=== PATIENT | male | born 1960 | race Caucasian/White ===

== ENCOUNTER 2017-01-26 20:52 | Emergency (ER) | payer OTHER ==
[~2017-01-26] VITALS: Ht 162.6 cm; Wt 65.8 kg
[2017-01-26] MEDS ORDERED: LISINOPRIL 10MG10 MG PO (21:08)
[2017-01-26] MEDS ORDERED: OMEPRAZOLE20 MG PO (21:09)
[2017-01-26] MEDS ORDERED: ASPIRIN 81MG TA81 MG PO (21:09)
--- NOTE | 2017-01-26 21:14 | Emergency Room Report ---
History of Present Illness Time Seen by [id number] Presenting Problem in Triage Pt arrived:Walked Presenting Problem:C/O ABDOMINAL PAIN WITH ABD SWELLING AND NAUSEA. ALSO C/O ABDOMINAL HERNIA. 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 N Clinical Suspician of Infection? N Mental Status: 1 - Regular (Normal Baseline) Sepsis Risk:Low Sepsis Risk Have you (or family members/close friends) recently traveled outside the [place]? N If Yes, where/when: Have you had exposure to infectious disease within the past month? N TB? Other? Specify: Source patient, RN notes reviewed, family, old records Exam Limitations no limitations Comment acute abd pain with swelling tender rt groin which started tonight Cardiac Chest Pain Chest pain indicative of cardiac No Timing/Duration this evening Severity moderate ALLERGIES Coded Allergies: No Known Allergies (01/26/17) Home Medications Reported Medications LISINOPRIL (Lisinopril) 10 MG PO DAILY Omeprazole (Omeprazole 20MG) 20 MG PO DAILY ASPIRIN (Aspirin) 81 MG PO DAILY History Medical History General CAD? Yes Angina: No [place]: No Hypertension? Yes Hyperlipidemia? Yes CHF? No DVT? No PE? No COPD? No Asthma? No Anemia? Yes GERD? Yes Gastric ulcers? No GI Bleed? No Hernia? Yes Thyroid Problems? No Hypothyroidism? No CVA? No Seizures? No Diabetes? No Renal Insuffiency? No End Stage Renal Disease? No UTI? No Stones? Yes BPH? No GB Disease: No Nephritic Syndrome? No Asplenia? No Hepatitis? No Sickle Cell Disease? No Arthritis? No Migraines? No Cataracts? No Glaucoma? No MRSA? No HIV? No TB? No Anxiety? No Depression? No Cancer? No More? Yes Additional hx: PANCREATITIS Immunization Hx DT/Tetanus Unknown Surgical Hx Previous Surgery?Y ANKLE RIGHT Social History Smoking Hx Smoker: Current Every Day Smoker Tobacco: Yes Type Cigarettes Packs/day < 1 Pack Are you/the child exposed to second-hand smoke: No Alcohol Alcohol: Yes Drugs none Review of Systems All Other Systems Reviewed and Negative Constitutional denies fever Eyes denies drainage ENT denies: ear discharge, epistaxis, throat pain. Respiratory denies cough, denies shortness of breath, denies wheezing Cardiovascular denies chest pain, denies palpitations, denies syncope Gastrointestinal see HPI, abdominal pain, denies diarrhea, nausea, denies vomiting Genitourinary see HPI, scrotal/testicular pain. denies: dysuria, frequency, hesitancy, hematuria. Musculoskeletal denies back pain, denies joint pain, denies joint swelling Skin denies rash Psychiatric/Neurological denies headache, denies seizure Physical Exam Vital Signs Vital Signs Date Time Temp Pulse Resp B/P Pulse O2 O2 Flow FiO2 Ox Delivery Rate 01/26 2329 97.8 58 20 177/90 97 01/267 97.7 66 20 155/92 96 01/26 2058 97.7 71 20 177/85 96 - WBC >12,000 or <4,000 or 10% bands? 2 or more SIRS Criteria Met? B/P:177/90 MAP:115 Creatinine >2.0? UA output<0.5ml/kg/hr for 2 hrs? Platelet count >100,000? Lactate >2.0mmol/1? INR >1.2 or PTT > than 60 sec? Evidence of Organ Dysfunction? Provider documented clinical suspician of infection? N Sepsis Criteria Count: 1 Sepsis Risk: Low Sepsis Risk General Appearance no apparent distress Eye Exam - bilateral eye PERRL, bilateral eye EOMI Ear, Nose, Throat normal ENT inspection Neck supple Respiratory Status No: respiratory distress. 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 No Results/Orders Laboratory Tests 01/26/172119: Troponin I < 0.02 01/26/172119: Sodium 136, Potassium 4.1, Chloride 98, Carbon Dioxide 26, BUN 13, Creatinine 1.0, Estimated Creat Clear 76, Estimated GFR (MDRD) 77, Glucose 161 H, Calcium 9.6, Total Bilirubin 1.3 H, AST 27, ALT 23, Alkaline Phosphatase 93, Total Protein 8.5 H, Albumin 4.6, Globulin 3.9 H, Albumin/Globulin Ratio 1.2, Amylase 68, Lipase 134, WBC 12.5 H, RBC 5.27, Hgb 16.4, Hct 49.2, MCV 93.4, RDW 12.0, Plt Count 358, MPV 7.1 L, Gran % 80.1 H, Gran # 10.0 H, Lymphocytes % 9.6 L, Monocytes % 5.9, Eosinophils % 3.5, Basophils % 0.9, Lymphocytes # 1.2, Monocytes # 0.7, Eosinophils # 0.4, Basophils # 0.1, PUBS MCHC 33.3, MCH 31.1, Alcohols 0, Urine Color YELLOW, Urine Appearance CLEAR, Urine pH 7.0, Ur Specific [place] 1.020, Urine Protein NEGATIVE, Urine Ketones NEGATIVE, Urine Blood 1+ H, Urine Nitrate NEGATIVE, Urine Bilirubin NEGATIVE, Urine Urobilinogen 1.0, Ur Leukocyte Esterase NEGATIVE, Urine RBC 5-10, Urine WBC 3-5, Ur Squamous Epith Cells 3-5, Urine Bacteria 1+, Urine Mucus OCC, Urine Glucose NEGATIVE Current Medication Orders Sig/Leodan Start time Last Medication Dose Route Stop Time Status Admin Sodium Chloride 1,000 ML .STK-MED ONE 01/26 2123 DC IV Sodium Chloride 10 ML PRN PRN 01/26 2115 AC IV 01/27 2110 Sodium Chloride 1,000 ML .Q1H1M 01/26 2115 DC 01/26 IV 01/26 Sodium Chloride 10 ML PRN PRN 01/26 2115 AC IV 01/27 2111 Orders Procedure Date/time Status DIET-NOTHING BY MOUTH 01/27 B Active TROPONIN I 01/26 2114 Complete ALCOHOL 01/[address] ABD & PELVIS W/O CONTRAST 01/[address] ABD/PELVIS REQ 01/26 2110 Complete IV SALINE LOCK 01/26 2110 Active URINALYSIS/COMPLETE 01/26 2110 Complete LIPASE 01/26 2110 Complete CBC WITH AUTO DIFF 01/26 2110 Complete CHEM 12 PROFILE 01/26 2110 Complete AMYLASE 01/26 2110 Complete XRAY/CT/US XRAY/CT/US CT abdomen, pelvis CT interpretation by discussed w/radiologist Time results known: 2346 CT Results normal/NAD (see report), abnormal Departure Departure Time of Disposition 2341 Disposition DC Home or Self Care(routine) Clinical Impression Primary Impression: Inguinal hernia Qualifiers: Obstruction and gangrene presence: without obstruction or gangrene Laterality: unilateral Recurrence: not specified as recurrent Qualified Code: K40.90 - Unilateral inguinal hernia, without obstruction or gangrene, not specified as recurrent Condition STABLE Referrals Raghav BLACKMON,Gama HENLEY MD,ALONZO Mccracken Patient Instructions DI for Groin Hernia Additional Instructions see pcp and surg for follow up Discharge Counseling Counseled pt/family regarding diagnosis, test results, medications/RX, follow up needs ED Critical Care Critical Care No at 2305
--- OUTSIDE RECORDS SUMMARY | 2017-01-26 21:30 | External Medical Summary Rpt | CCD ---
Author Author [employer] Organization [employer] Address Unknown Phone Unavailable Purpose Continuity of Care Document - through 2016
--- OUTSIDE RECORDS SUMMARY | 2017-01-26 21:30 | External Medical Summary Rpt | CCD ---
Demographics Preferred Language Romanian Marital Status Unknown Taoist Affiliation Unknown Race Unknown Ethnic Group Unknown Author Author , NATASHA Organization NATASHA Address Unknown Phone [email or web address] Purpose Continuity of Care Document - 11-06-2016 through 2016 Problems Code Diagnosis DOS Provider Status F17.210 NICOTINE 11-06-2016 DEPENDENCE, CIGARETTES, UNCOMPLICAT ED I10 ESSENTIAL 11-06-2016 (PRIMARY) HYPERTENSIO N K21.9 GASTRO-ESOP 11-06-2016 HAGEAL REFLUX DISEASE WITHOUT ESOPHAGITIS K59.00 CONSTIPATIO 11-06-2016 N, UNSPECIFIED K85.90 ACUTE 11-06-2016 PANCREATITI S WITHOUT NECROSIS OR INFECTION, UNSPECIFIED R10.9 UNSPECIFIED 11-06-2016 ABDOMINAL PAIN
--- OUTSIDE RECORDS SUMMARY | 2017-01-26 21:30 | External Medical Summary Rpt | CCD ---
Demographics Preferred Language Serbian Marital Status Unknown Confucianist Affiliation Unknown Race Unknown Ethnic Group Unknown Author Author , NATASHA Organization NATASHA Address Unknown Phone [email or web address] Purpose Continuity of Care Document - 11-06-2016 through 2016 Problems Code Diagnosis DOS Provider Status F17.210 NICOTINE 11-06-2016 DEPENDENCE, CIGARETTES, UNCOMPLICAT ED I10 ESSENTIAL 11-06-2016 (PRIMARY) HYPERTENSIO N K21.9 GASTRO-ESOP 11-06-2016 HAGEAL REFLUX DISEASE WITHOUT ESOPHAGITIS K59.00 CONSTIPATIO 11-06-2016 N, UNSPECIFIED K85.90 ACUTE 11-06-2016 PANCREATITI S WITHOUT NECROSIS OR INFECTION, UNSPECIFIED R10.9 UNSPECIFIED 11-06-2016 ABDOMINAL PAIN
--- OUTSIDE RECORDS SUMMARY | 2017-01-26 21:31 | External Medical Summary Rpt | CCD ---
Demographics Preferred Language Irish Marital Status Unknown Caodaism Affiliation Unknown Race Unknown Ethnic Group Unknown Author Author , NATASHA KAUR Address Unknown Phone Immunization Unable to retrieve immunization data due to connection failure with Immunization Registry. Please try again later.
--- OUTSIDE RECORDS SUMMARY | 2017-01-26 21:31 | External Medical Summary Rpt | CCD ---
Demographics Preferred Language Welsh Marital Status Unknown Jainism Affiliation Unknown Race Unknown Ethnic Group Unknown Author Author , NATASHA KAUR Address Unknown Phone Immunization Unable to retrieve immunization data due to connection failure with Immunization Registry. Please try again later.
[2017-01-26 21:32] LABS: HEMOGLOBIN 16.4 g/dL (14.1-18.0); LYMPH # 1.2 K/mm3 (0.7-4.5); LYMPH % 9.6 % (10-50)
[2017-01-26 21:39] LABS: URINE BILIRUBIN - DIPSTICK NEGATIVE (NEG); URINE BLOOD 1+ (NEG)
[2017-01-27 00:06] VITALS: BP 148/86
--- NOTE | 2017-01-27 16:50 | RADIOLOGY REPORT PS360 ---
CT ABD PELVIS W/O CONTRAST Ordering Physician: Denver Quach MD Patient Age: 56 years: Male HISTORY: ABD PAIN WITH NAUSEA TECHNIQUE: Helical CT is performed the abdomen pelvis with no oral or IV contrast. Sagittal coronal reconstructions on CT workstation. COMPARISON :No previous for comparison FINDINGS Lung bases appear clear with no active disease. Heart normal size. Abdomen/pelvis. The lack of oral and IV contrast decreases sensitivity Liver. Diffuse fatty changes no focal lesion. No biliary ductal dilatation Gallbladder unremarkable.. No calcified gallstones Pancreas. Noncontrast images of pancreas appears satisfactory Kidneys. Minor stranding in both kidneys most likely reflecting chronic changes. Warrants correlation with urinalysis to exclude UTI . Scattered small punctate nonobstructive calculi throughout both kidneys most evident left kidney.. Largest renal calculus measured 5.5 mm at upper pole left kidney but majority otherwise measuring less than 4 mm bilaterally. LEFT KIDNEY.*3 cm exophytic mass with scant wall calcification,. This feature was not discussed on [facility] report This mass extends from the lateral inferior wall of left kidney. It is intermediate density, 30hu. This density does not meet criteria for benign cyst and could be reflective developing soft tissue solid nodule. Thus recommend ultrasound to further evaluate or comparison to old study. Generous band of Cortex midportion left kidney ("column of Steve ") accounts for for the appearance here.. Right kidney. No mass lesions. [facility] question some mild fullness of the right pelvicalyceal system but this is unimpressive, equivocal at best. Right ureter unremarkable . no hydronephrosis. No urinary tract obstruction. The ureters appear normal in course and caliber. Urinary bladder. Mild diffuse wall thickening. Reflect lack of distention versus mild cystitis. The prostate is moderate size scattered calcifications. No free fluid in cul-de-sac . No free air GI TRACT. Large Right inguinal hernia. The cecum, ileocecal valve & terminal ileum are resides within this hernia sac here at the right hemiscrotum. There is no small bowel dilatation proximal to this point. No significant wall thickening. However there is increased fluid at the right hemiscrotum also surrounding inferior margin of this bowel at hernia sac but this may reflect associated hydrocele, with upper normal wall thickness at areas of bowel leading into this area. Bowel here does not appear to be strangulate There is moderate stool seen throughout the remaining right and transverse colon with minimal stool descending colon. Mild wall thickness at proximal right colon as well as distal transverse and descending colon noted. May reflect lack of distention but cannot exclude mild colitis. Lack of Liquid stool liquid largebowel Tends to to speak against the latter. There is some generous small bowel fluid but no significant small bowel dilatation obstruction no significant air-fluid levels. Also note minimal bulging of a fat-containing hernia at the left inguinal canal but no associated bowel loops... No retroperitoneal nor mesenteric adenopathy. Adrenals unremarkable. . Degenerative disc narrowing L5/S1 with spondylotic disc bulge at this level and anterolisthesis of L3/4. ............ IMPRESSION............ GI tract observations: 1. Large Right Inguinal Hernia . Large hernia sac extends to the scrotum containing cecum, ileocecal valve & terminal ileum. There is some increased fluid at the right hemiscrotum with upper normal wall thickness in the cecum and throughout the right colon which could reflect a colitis.. No prominent inflammation or wall thickening nor evidence of strangulation at the hernia. Clinical correlation required. No associated small bowel obstruction 2. Generous wall thickness throughout the right colon, & even more evident at distal transverse & descending colon. May merely reflect the lack of distention. Difficult to exclude mild inflammation/ colitis but unlikely-. With no liquid stool evident in this region. 3. Laxity left inguinal ring, minor Small Fat-containing bulging into left inguinal hernia. . Barely evident No bowel loops ------- tract observations: 4.. Numerous punctate nonobstructive renal calculi bilaterally. More evident at LEFT KIDNEY. 5.*There is a 3 cm mass off lateral aspect left kidney.- Intermediate density. Requires ultrasound to further evaluate. (. Cannot exclude developing solid mass on this study.) 6.. Upper normal wall thickness of the urinary bladder. Warrants correlation with urinalysis to exclude cystitis. Please fax to to [facility], ER, and primary care office: *[facility] discrepancy* (moderate ) 3 cm Indeterminate possibly solid left renal mass not noted on [facility] report. Requires follow-up.)
== END 2017-01-27 00:07 | disposition home or self-care (01) ==
LOC: ER 20:52
PROVIDERS: Emergency Medicine
DX: K40.90 Unilateral inguinal hernia, without obstruction or gangrene, not specified as recurrent (principal); I10 Essential (primary) hypertension; Z79.82 Long term (current) use of aspirin; E78.5 Hyperlipidemia, unspecified; K21.9 Gastro-esophageal reflux disease without esophagitis; D64.9 Anemia, unspecified; F17.210 Nicotine dependence, cigarettes, uncomplicated